=== PATIENT | female | born 1980 | race Two or more races ===

== ENCOUNTER → 2018-01-15 | Outpatient (CLI) | payer BC ==
--- NOTE | 2018-01-15 15:58 | RAD ---
Pelvic ultrasound, 01/15/2018: History: Dysfunctional uterine bleeding Transabdominal and transvaginal scans were obtained. The uterus measures 9 x 6.3 x 5.1 cm. The central uterine echo complex was best demonstrated transabdominally and measures 4-5 mm. A tiny amount of fluid is noted in the endocervical canal. The ovaries are of normal size. Bilateral follicular cysts are present. The largest of these lies on the right and measures 2.5 cm. Blood flow is present in both ovaries. No free fluid is evident in the pelvis. IMPRESSION: No significant abnormality is detected.
== END | disposition home or self-care (01) ==
LOC: US 13:47
PROVIDERS: ATTEND Obstetrics & Gynecology
DX: N93.8 Other specified abnormal uterine and vaginal bleeding (principal)
CPT/HCPCS: 76830; 76856

== ENCOUNTER → 2021-07-26 | Outpatient (CLI) | payer BC ==
--- NOTE | 2021-07-26 16:31 | RAD ---
MG BILAT SCREEN+KAYLYNN 07/26/2021 10:15 AM INDICATION: Asymptomatic screening mammogram. COMPARISON: 03/20/2014 TECHNIQUE: 3D tomosynthesis was performed in CC and MLO projections. 2D views were obtained from the 3D data. CAD was utilized as needed. FINDINGS: Breast density: Category B: There are scattered areas of fibroglandular density. Right breast: In the lower slightly medial] breast, there is a focal asymmetry measuring 1.5 cm at po sterior depth, approximately 9 to 10 cm from the nipple. Further evaluation spot compression CC and M L views as well as possible ultrasound is recommended. Left breast: There are no suspicious microcalcifications, masses or areas of architectural distortion . Left mammogram is compared to prior examinations appears unchanged. IMPRESSION: 1. Incomplete right mammogram. Additional imaging is recommended as detailed above. Next on 2. Negati ve left mammogram. BI-RADS category: 0; Incomplete Recommendations: Recommend additional imaging for which the patient will need to be called back. Electronically signed by: Ghislaine Go MD (07/26/2021 4:29 PM) [id number]
== END ==
LOC: MAMMO 09:27
PROVIDERS: ATTEND Family Medicine
DX: Z12.31 Encounter for screening mammogram for malignant neoplasm of breast (principal)
CPT/HCPCS: 77063; 77067

== ENCOUNTER → 2021-08-30 | Outpatient (CLI) | payer BC ==
--- NOTE | 2021-08-30 16:20 | RAD ---
EXAM: Bilateral digital diagnostic mammogram; right breast sonogram. HISTORY: 41-year-old female presents for evaluation of asymmetry within the right breast demonstrated on a screening mammogram dated 07/26/2021. TECHNIQUE: Full-field digital and compression views of the right breast are obtained. Sonographic rosina ging of the right breast targeted to the site of asymmetry and the right axilla was also performed. COMPARISON: 07/26/2021 BREAST PARENCHYMAL DENSITY: Level B - Scattered fibroglandular densities. FINDINGS: There is persistent nodular asymmetry within the posterior 5:00 position of the right breas t with additional mammographic views. There is no associated architectural distortion or calcificatio n. Sonographic imaging of the right breast demonstrates an irregular hypoechoic lesion with partially lo bulated and partially indistinct margins at the 5:00 position 7 cm probable measuring 1.2 cm. This de monstrates no internal blood flow or posterior shadowing. This likely corresponds with the mammograph ic finding of concern. IMPRESSION: 1. 1.2 cm hypoechoic lesion at the posterior 5:00 position of the right breast 7 cm from the nipple, corresponding with the mammographic finding of concern. The sonographic appearance favors a cluster o f cysts or benign fibrocystic or fibroadenomatoid etiology. However, given the mammographic appearanc e and indistinct margins, sonographic guided biopsy is recommended for definitive diagnosis. 2. BI-RADS Category 4: Suspicious abnormality. Sonographic guided biopsy is recommended. These findings were communicated to the patient and nurse Minnie in the referring physician office at 1 600 hours on 08/30/2021. If your mammogram demonstrates that you have dense breast tissue, which could hide abnormalities, and if you have other risk factors for breast cancer that have been identified, you might benefit from s upplemental screening tests that may be suggested by your ordering physician. Dense breast tissue, i n and of itself, is a relatively common condition. This information is not provided to cause undue c oncern, but rather to raise your awareness and to promote discussion with your physician regarding th e presence of other risk factors, in addition to dense breast tissue. A report of your mammography re sults will be sent to you and your physician. You should contact your physician if you have any ques tions or concerns regarding this report. Mammography is a sensitive method for finding small breast cancers, but it does not detect them all a nd is not a substitute for careful clinical examination. A negative mammogram does not negate a clin ically suspicious finding and should not result in delay in biopsying a clinically suspicious abnorma lity. PQRS compliance statement - Patient information was entered into a reminder system with a target due date for the next mammogram. "Our facility is accredited by the [employer] Mammography [employer]." Electronically signed by: Hoda Calhoun MD (08/30/2021 4:18 PM) [id number]
== END ==
LOC: MAMMO 14:34
PROVIDERS: ATTEND Family Medicine
DX: R92.2 Inconclusive mammogram (principal); N64.89 Other specified disorders of breast
CPT/HCPCS: 76642; 77065